=== PATIENT | male | born 1970 | race Hispanic/Latino ===

== ENCOUNTER 2023-08-22 14:46 | Outpatient (CLI) | payer OTHER, SELFPAY ==
--- NOTE | ~2023-08-22 | XR_ITS ---
EXAMINATION: XR chest 2V DATE: 08/22/2023 15:10 INDICATION: Anterior chest wall pain. TECHNIQUE: Frontal and lateral views of the chest were obtained. COMPARISON: Chest CT 08/22/2023 FINDINGS: There is no pneumonia, pleural effusion, or pneumothorax. The heart size is normal. IMPRESSION: 1. No acute cardiopulmonary disease. Reviewed, dictated and finalized at location E. ER NICKEL
--- NOTE | ~2023-08-22 | CT_ITS ---
EXAMINATION:CT lung screening DATE: 08/22/2023 15:06 INDICATION: Personal history of nicotine dependence. Current smoker with 30 pack year history. TECHNIQUE: Computed tomography (CT) of the chest was performed without intravenous contrast. Automate d exposure control and iterative reconstruction technique were employed. The dose-length product (DLP ) was 175.81 mGy-cm. COMPARISON: None. FINDINGS: The lungs demonstrate minimal atelectasis. There is mild scarring in paraspinal right lower lobe. No pleural effusion. The heart size is normal. There are coronary artery calcifications. No pe ricardial effusion. There is moderate cervical and thoracic spondylosis. IMPRESSION: 1. Lung-RADS category 2: Benign appearance or behavior. Continue annual screening with noncontrast lo w-dose chest CT in 12 months. Reviewed, dictated and finalized at location E. OAR MAKER IMPRESSION: 1. Lung-RADS category 2: Benign appearance or behavior. Continue annual screeni ng with noncontrast low-dose chest CT in 12 months.
== END 2023-08-22 14:47 | disposition home or self-care (01) ==
PROVIDERS: PCP Internal Medicine; Visit Provider Internal Medicine
DX: Z12.2 Encounter for screening for malignant neoplasm of respiratory organs (principal); Z87.891 Personal history of nicotine dependence
CPT/HCPCS: 71046; 71271